=== PATIENT | female | born 1940 | race Asian ===

== ENCOUNTER 2017-07-11 12:22 | Emergency (ER) | payer MEDICARE, MEDICAID ==
[~2017-07-11] VITALS: Ht 162.6 cm; Wt 68.0 kg
[2017-07-11 13:10] LABS: BASOPHILS % (AUTO) 0.6 % (0-1); EOSINOPHILS # (AUTO) 0.3 X10'3 (0-0.9); EOSINOPHILS % (AUTO) 3.7 % (0-6); HEMATOCRIT 38.7 % (35.0-45.0); HEMOGLOBIN 13.2 g/dl (12.0-16.0); LYMPHOCYTES # (AUTO) 2.9 X10'3 (1.1-4.8); LYMPHOCYTES % (AUTO) 36.1 % (21-51); MEAN CORPUSCULAR HEMOGLOBIN 33.2 PG (27.0-31.0); MEAN CORPUSCULAR HGB CONC 34.2 % (33.0-36.5); MONOCYTES # (AUTO) 0.5 X10'3 (0-0.9); MONOCYTES % (AUTO) 5.6 % (2-12); NEUTROPHILS # (AUTO) 4.3 X10'3 (1.8-7.7); PLATELET COUNT 187 X10'3 (140-440); RED BLOOD COUNT 3.98 X10'6 (4.20-5.60); RED CELL DISTRIBUTION WIDTH 13.7 % (11.5-14.5)
[2017-07-11] MEDS ORDERED: niCARDipine/sod cl 20mg/200ml 200 ML IV SCH (13:20)
[2017-07-11] MEDS ORDERED: nitroGLYCERIN 1gm ointment UD TP ONE (13:20)
[2017-07-11 13:30] LABS: ALANINE AMINOTRANSFERASE 66 U/L (12-78); ALBUMIN 3.4 G/DL (3.4-5.0); ALBUMIN/GLOBULIN RATIO 0.6 (1.1-1.5); ALKALINE PHOSPHATASE 426 IU/L (46-116); ANION GAP 10 (8-16); ASPARTATE AMINO TRANSFERASE 80 U/L (10-37); BILIRUBIN,TOTAL 0.6 MG/DL (0.1-1.0); BLOOD UREA NITROGEN 10 MG/DL (7-18); BUN/CREATININE RATIO 12.8 (6.6-38.0); CALCIUM 9.1 MG/DL (8.5-10.1); CHLORIDE 103 MMOL/L (99-107); CREATININE 0.78 MG/DL (0.40-0.90); GLUCOSE 169 MG/DL (70-104); SODIUM 140 MMOL/L (135-145); TOTAL PROTEIN 8.9 G/DL (6.4-8.2); eGFR 71 ML/MIN
[2017-07-11 13:52] LABS: PARTIAL THROMBOPLASTIN TIME 26 SECONDS (22-32); PROTHROMBIN TIME 10.3 SECONDS (9.0-12.0)
[2017-07-11] MEDS ORDERED: iohexol 350MG/ML 100ml bottle IV ONE (14:43)
[2017-07-11] MEDS ORDERED: MESSAGE TO NURSING PO NR (14:50)
[2017-07-11 15:57] VITALS: BP 159/79
[2017-07-11 16:06] VITALS: BP 171/86
[2017-07-11 16:21] VITALS: BP 190/92
[2017-07-11 16:26] VITALS: BP 179/80
[2017-07-11 16:36] VITALS: BP 178/77
[2017-07-11] MEDS ORDERED: acetaminophen 325mg tablet PO PRN ×2 (16:55)
[2017-07-11] MEDS ORDERED: magnesium 2GM in 50ml NS 50 ML IV PRN (16:55)
[2017-07-11] MEDS ORDERED: sodium phosphate inj. 30 MMOL in dextrose 5%-water 250 ML IV PRN (16:55)
[2017-07-11] MEDS ORDERED: morphine 4 MG/ML inj SYRINge IV PRN ×2 (16:55)
[2017-07-11] MEDS ORDERED: magnesium 4gm in 100ml NS 100 ML IV PRN (16:55)
[2017-07-11] MEDS ORDERED: ondansetron/PF 4mg/2ml inj IV PRN (16:55)
[2017-07-11] MEDS ORDERED: pantoprazole 40 MG vial IV SCH (16:55)
[2017-07-11] MEDS ORDERED: potassium Cl 20 mEq SR tablet PO PRN ×2 (16:55)
[2017-07-11] MEDS ORDERED: sodium phosphate inj. 15 MMOL in dextrose 5%-water 150 ML IV PRN (16:55)
[2017-07-11] MEDS ORDERED: magnesium Cl slow-release 64mg tablet PO PRN (16:55)
[2017-07-11] MEDS ORDERED: magnesium hydroxide 30ml (MOM) UD suspension PO PRN (16:55)
[2017-07-11] MEDS ORDERED: Neutra Phos packet PO PRN (16:55)
[2017-07-11 16:56] VITALS: BP 150/67
== END 2017-07-11 16:47 ==
LOC: ER 12:23
DX: I63.9 Cerebral infarction, unspecified (principal); I16.1 Hypertensive emergency; I10 Essential (primary) hypertension; J90 Pleural effusion, not elsewhere classified; I65.22 Occlusion and stenosis of left carotid artery
CPT/HCPCS: 36415; 70450; 70460; 71045; 80053; 84484; 85025; 85610; 85730; 93005; 99291; 99292; A6258; J2997; J7030; Q9967

== ENCOUNTER 2018-10-15 11:11 | Day surgery (SDC) | payer MEDICARE, MEDICAID ==
[~2018-10-15] VITALS: Ht 149.9 cm; Wt 60.1 kg
[2018-10-15] VITALS (7 sets, daily range): BP systolic 151–217; BP diastolic 66–95
[2018-10-15] MEDS ORDERED: acetaminophen 325mg tablet PO ONE (11:30)
[2018-10-15] MEDS ORDERED: diphenhydrAMINE 25mg capsule PO ONE (11:30)
[2018-10-15] MEDS ORDERED: dexamethasone sod phosphate 10mg/ml inj IV ONE (11:35)
== END 2018-10-15 16:00 | disposition home or self-care (01) ==
LOC: SSTAY O 11:11
PROVIDERS: ATTEND Internal Medicine Hematology & Oncology
DX: D64.9 Anemia, unspecified (principal)
CPT/HCPCS: 36415; 36430; 86885; 86900; 86901; 86920; J1100; P9016; Q0163

== ENCOUNTER 2019-09-27 18:39 | Emergency (ER) | payer MEDICARE, MEDICAID ==
[~2019-09-27] VITALS: Ht 160 cm; Wt 69.1 kg
[2019-09-27] MEDS ORDERED: heparin 25,000 UNIT/250ml bag 250 ML IV SCH (19:00)
[2019-09-27] MEDS ORDERED: heparin 10,000 units/1 ML INJ IV ONE (19:00)
[2019-09-27 19:48] LABS: BASOPHILS # (AUTO) 0.1 X10'3 (0-0.2); EOSINOPHILS # (AUTO) 0.2 X10'3 (0-0.9); EOSINOPHILS % (AUTO) 3.3 % (0-6); HEMATOCRIT 35.9 % (35.0-45.0); HEMOGLOBIN 12.1 g/dl (12.0-16.0); LYMPHOCYTES # (AUTO) 2.4 X10'3 (1.1-4.8); LYMPHOCYTES % (AUTO) 40.9 % (21-51); MEAN CORPUSCULAR HEMOGLOBIN 34.2 PG (27.0-31.0); MEAN CORPUSCULAR HGB CONC 33.7 g/dL (33.0-36.5); MEAN CORPUSCULAR VOLUME 101.6 FL (78-98); MEAN PLATELET VOLUME 8.1 FL (7.4-10.4); MONOCYTES # (AUTO) 0.6 X10'3 (0-0.9); MONOCYTES % (AUTO) 9.8 % (2-12); NEUTROPHILS # (AUTO) 2.6 X10'3 (1.8-7.7); PLATELET COUNT 222 X10'3 (140-440); RED BLOOD COUNT 3.54 X10'6 (4.20-5.60); RED CELL DISTRIBUTION WIDTH 13.4 % (11.5-14.5); WHITE BLOOD COUNT 5.9 X10'3 (4.5-11.0)
[2019-09-27] MEDS ORDERED: amLODIPine 5mg tablet PO ONE (20:00)
[2019-09-27] MEDS ORDERED: hyDRALAzine 10mg tablet PO STA (20:04)
[2019-09-27] MEDS ORDERED: hydrALAZINE 20mg/ml inj. IV ONE (20:05)
[2019-09-27 20:06] LABS: ALANINE AMINOTRANSFERASE 70 U/L (12-78); ALBUMIN 3.1 G/DL (3.4-5.0); ALBUMIN/GLOBULIN RATIO 0.6 (1.1-1.5); ALKALINE PHOSPHATASE 393 IU/L (46-116); ANION GAP 8 (8-16); ASPARTATE AMINO TRANSFERASE 59 U/L (10-37); BILIRUBIN,TOTAL 0.8 MG/DL (0.1-1.0); BLOOD UREA NITROGEN 10 MG/DL (7-18); BUN/CREATININE RATIO 11.8 (6.6-38.0); CALCIUM 8.4 MG/DL (8.5-10.1); CHLORIDE 104 MMOL/L (99-107); CREATININE 0.85 MG/DL (0.40-0.90); GLUCOSE 136 MG/DL (70-104); POTASSIUM 3.6 MMOL/L (3.5-5.1); SODIUM 137 MMOL/L (135-145); TOTAL CARBON DIOXIDE 24.6 MMOL/L (24-32); TOTAL PROTEIN 8.1 G/DL (6.4-8.2); eGFR 64 ML/MIN
[2019-09-27 22:08] VITALS: BP 121/60
== END 2019-09-27 22:14 | disposition home or self-care (01) ==
LOC: ER 18:40
DX: I16.0 Hypertensive urgency (principal); I10 Essential (primary) hypertension; R51 Headache; R53.1 Weakness
CPT/HCPCS: 36415; 70450; 71045; 80053; 84484; 85025; 96374; 99285; J0360